=== PATIENT | male | born 1960 | race American Indian/Alaskan Native ===

== ENCOUNTER 2016-10-15 11:38 | Inpatient (IN) | payer MEDICAID, OTHER ==
--- NOTE | 2016-10-15 12:26 | XRay Report ---
CHEST 2 VIEWS INDICATION: Shortness of breath. COMPARISON: 03/09/2015 FINDINGS: PA and lateral chest radiographs again suggest mild left lower lung pneumonia. Right hemidiaphragm slightly elevated. No significant pleural effusions. Normal cardiomediastinal silhouette. New left sided central catheter with port situated along the left arm soft tissues medially. Intact bones. CONCLUSION: Left lower lung pneumonia again suspected with interval left sided central catheter placement, as described. Thank you for the opportunity to participate in this patient's care.
[2016-10-15 12:33] LABS: Basophils % (Auto) 0.5 % (0.0-1.8); Eosinophils % (Auto) 0.8 % (0.0-4.3); Hematocrit 34.3 % (35.5-45.6); Hemoglobin 11.1 gm/dl (11.8-15.2); Mean Corpuscular HGB Conc 32 % (32-34); Mean Corpuscular Hemoglobin 29 pg (28-32); Mean Corpuscular Volume 89 fl (84-94); Platelet Count 325 K/mm3 (140-440); Red Blood Count 3.87 M/mm3 (3.65-5.03); Red Cell Distribution Width 17.4 % (13.2-15.2); White Blood Count 11.1 K/mm3 (4.5-11.0)
[2016-10-15 12:45] LABS: Alanine Aminotransferase 11 units/L (7-56); Albumin 3.5 g/dL (3.9-5); Albumin/Globulin Ratio 0.8 %; Alkaline Phosphatase 115 units/L (35-129); Anion Gap 22 mmol/L; BUN/Creatinine Ratio 17.14; Blood Urea Nitrogen 12 mg/dL (9-20); Calcium 8.9 mg/dL (8.4-10.2); Carbon Dioxide 21 mmol/L (22-30); Chloride 99.4 mmol/L (98-107); Glucose 148 mg/dL (75-100); Potassium 4.3 mmol/L (3.6-5.0); Sodium 138 mmol/L (137-145); Total Protein 8.1 g/dL (6.3-8.2)
[2016-10-15 13:13] LABS: INR 1.04 (0.87-1.13)
--- NOTE | 2016-10-15 15:27 | Emergency Department Report ---
ED Shortness of Breath HPI - General Chief Complaint: Dyspnea/Respdistress Stated Complaint: SOB Time Seen by Provider: 10/15/16 15:19 Source: patient Mode of arrival: Ambulatory Limitations: No Limitations - History of Present Illness Initial Comments: Patient states that he recently returned from [facility]. He complains of yellow- green productive sputum. He denies chest pain or pressure tightness or pain or any hemoptysis. He states he is compliant with his HIV medicines but does not know his specific CD4 count. He complains of shortness of breath. He denies headache neck pain and stiffness. He thinks he may have had a fever but he did not check his temperature. MD Complaint: shortness of breath, cough -: days(s) Consistency: constant Improves With: nothing Worsens With: nothing Known History Of: HIV - Related Data Home Medications Medication Instructions Recorded Confirmed Last Taken Darunavir [Prezista] 800 mg PO QDAY 03/03/15 03/03/15 02/27/15 Elvitegr/Cobicist/Emtric/Tenof 1 each PO DAILY 03/03/15 03/03/15 02/27/15 [Stribild Tablet] Allergies Allergy/AdvReac Type Severity Reaction Status Date / Time No Known Allergies Allergy Verified 03/01/15 10:38 ED Review of Systems ROS: Stated complaint: SOB Other details as noted in HPI Constitutional: denies: chills, fever Eyes: denies: eye pain, eye discharge, vision change ENT: denies: ear pain, throat pain Respiratory: cough, shortness of breath. denies: wheezing Cardiovascular: denies: chest pain, palpitations Endocrine: no symptoms reported Gastrointestinal: denies: abdominal pain, nausea, diarrhea Genitourinary: denies: urgency, dysuria Musculoskeletal: denies: back pain, joint swelling, arthralgia Skin: denies: rash, lesions Neurological: denies: headache, weakness, paresthesias Psychiatric: denies: anxiety, depression Hematological/Lymphatic: denies: easy bleeding, easy bruising ED Past Medical Hx - Past Medical History Hx Hypertension: Yes Hx CVA: No Hx Congestive Heart Failure: No Hx Diabetes: No Hx Asthma: No Hx COPD: No Hx HIV: Yes Additional medical history: rectal mass - Surgical History Additional Surgical History: penile surgery,left inguinal hernia - Social History Smoking Status: Never Smoker Substance Use Type: None - Medications Home Medications: Home Medications Medication Instructions Recorded Confirmed Last Taken Type Darunavir [Prezista] 800 mg PO QDAY 03/03/15 03/03/15 02/27/15 History Elvitegr/Cobicist/Emtric/Tenof 1 each PO DAILY 03/03/15 03/03/15 02/27/15 History [Stribild Tablet] ED Physical Exam - General Limitations: No Limitations General appearance: other (somewhat ill-appearing) - Head Head exam: Present: atraumatic, normocephalic - Eye Eye exam: Present: normal appearance. Absent: scleral icterus - ENT ENT exam: Present: normal exam, mucous membranes moist - Neck Neck exam: Present: normal inspection - Respiratory Respiratory exam: Present: rhonchi (scattered rhonchi). Absent: respiratory distress, accessory muscle use, decreased breath sounds, prolonged expiratory - Cardiovascular Cardiovascular Exam: Present: normal rhythm, tachycardia. Absent: systolic murmur, diastolic murmur, rubs, gallop - GI/Abdominal GI/Abdominal exam: Present: soft, normal bowel sounds. Absent: distended, tenderness, guarding, rebound, rigid - Rectal Rectal exam: Present: deferred - Extremities Exam Extremities exam: Present: normal inspection, normal capillary refill. Absent: full ROM, tenderness, pedal edema, joint swelling, calf tenderness - Back Exam Back exam: Present: normal inspection - Neurological Exam Neurological exam: Present: alert, oriented X3, CN II-XII intact. Absent: motor sensory deficit - Psychiatric Psychiatric exam: Present: normal affect, normal mood - Skin Skin exam: Present: warm, dry, intact, normal color. Absent: rash ED Course Vital Signs 10/15/16 11:43 Temperature 98.3 F Pulse Rate 112 H Respiratory 22 Rate Blood Pressure 135/94 O2 Sat by Pulse 93 Oximetry - Reevaluation(s) Reevaluation #1: Patient was begun on IV Levaquin and by mouth Bactrim. He states he thinks his CD4 count is normal but he does know at that number is. He is admitted by Dr. Flores who may expand his antibiotic coverage. He was admitted in stable condition. Placed on 2 L O2 and his saturation was in the high 90s. Further care and additional antibiotic management by Dr. Flores. 10/15/16 18:27 10/15/16 18:31 ED Medical Decision Making - Lab Data Result diagrams: 10/15/16 12:02 10/15/16 12:16 Laboratory Results - last 24 hr 10/15/16 10/15/16 10/15/16 12:02 12:02 12:16 WBC 11.1 H RBC 3.87 Hgb 11.1 L Hct 34.3 L MCV 89 MCH 29 MCHC 32 RDW 17.4 H Plt Count 325 Lymph % (Auto) 20.3 [place] % (Auto) 5.4 Eos % (Auto) 0.8 Baso % (Auto) 0.5 Lymph # 2.3 [place] # 0.6 Eos # 0.1 Baso # 0.1 Seg Neutrophils % 73.0 H Seg Neutrophils # 8.1 H PT INR VBG pH Sodium 138 Potassium 4.3 Chloride 99.4 Carbon Dioxide 21 L Anion Gap 22 BUN 12 Creatinine 0.7 L Estimated GFR > 60 BUN/Creatinine Ratio 17.14 Glucose 148 H Lactic Acid Calcium 8.9 Total Bilirubin 0.30 AST 18 ALT 11 Alkaline Phosphatase 115 Troponin T 0.020 Total Protein 8.1 Albumin 3.5 L Albumin/Globulin Ratio 0.8 10/15/16 10/15/16 10/15/16 12:28 12:28 12:28 WBC RBC Hgb Hct MCV MCH MCHC RDW Plt Count Lymph % (Auto) [place] % (Auto) Eos % (Auto) Baso % (Auto) Lymph # [place] # Eos # Baso # Seg Neutrophils % Seg Neutrophils # PT 13.5 INR 1.04 VBG pH 7.324 Sodium Potassium Chloride Carbon Dioxide Anion Gap BUN Creatinine Estimated GFR BUN/Creatinine Ratio Glucose Lactic Acid 2.70 H* Calcium Total Bilirubin AST ALT Alkaline Phosphatase Troponin T Total Protein Albumin Albumin/Globulin Ratio - EKG Data -: EKG Interpreted by Me EKG shows normal: sinus rhythm, axis, intervals, QRS complexes, ST-T waves Rate: tachycardia - EKG Data Interpretation: no acute changes - Radiology Data Bilateral lower lobe infiltrates. Critical care attestation.: If time is entered above; I have spent that time in minutes in the direct care of this critically ill patient, excluding procedure time. ED Disposition Clinical Impression: Hypoxia, HIV positive Bilateral pneumonia Qualifiers: Pneumonia type: due to unspecified organism Lung location: lower lobe of lung Qualified Code(s): J18.9 - Pneumonia, unspecified organism Disposition: DC-09 OP ADMIT IP TO THIS HOSP Is pt being admited?: Yes Does the pt Need Aspirin: Yes Condition: Stable Instructions: Bacterial Pneumonia (ED) Referrals: PRIMARY CARE, [Primary Care Provider] - 3-5 Days Time of Disposition: 18:36
--- NOTE | 2016-10-15 15:48 | History and Physical Report ---
History of Present Illness Chief complaint: Im coughing up green stuff History of present illness: 56 YO Male with HTN, HIV presents to ED for evaluation. Pt states that he has experienced productive cough of green sputum over the past week, with worsening shortness of breath over the past 3 days. Pt denies fever, chills, CP, Palpitations, NVD, neck pain, unintentional weight loss, night sweats, BRBPR, or known recent ill contacts. Pt states that he is compliant with his HIV medication, but does not know his CD4 count. Past History Past Medical History: HIV/AIDS, hyperthyroidism Past Surgical History: Other (penile surgery) Social history: , lives with family. denies: smoking, alcohol abuse, prescription drug abuse Family history: hypertension Medications and Allergies Allergies Allergy/AdvReac Type Severity Reaction Status Date / Time No Known Allergies Allergy Verified 03/01/15 10:38 Home Medications Medication Instructions Recorded Confirmed Last Taken Type Darunavir [Prezista] 800 mg PO QDAY 03/03/15 10/15/16 02/27/15 History Elvitegr/Cobicist/Emtric/Tenof 1 each PO DAILY 03/03/15 10/15/16 02/27/15 History [Stribild Tablet] Review of Systems Constitutional: no weight loss, no weight gain, no fever Ears, nose, mouth and throat: no ear pain, no ear discharge, no tinnitis, no decreased hearing, no nose pain Cardiovascular: no chest pain, no orthopnea, no rapid/irregular heart beat, no edema, no syncope Respiratory: cough with sputum, excessive sputum, shortness of breath Gastrointestinal: no abdominal pain, no nausea, no vomiting, no diarrhea Genitourinary Male: no dysuria, no hematuria, no flank pain, no discharge Rectal: no pain, no incontinence, no bleeding Musculoskeletal: no neck stiffness, no neck pain, no shooting arm pain, no arm numbness/tingling, no low back pain Integumentary: no rash, no pruritis, no redness, no sores, no wounds Neurological: no transient paralysis, no paralysis, no weakness, no parathesias , no tingling, no seizures Psychiatric: no anxiety, no memory loss, no change in sleep habits, no sleep disturbances, no insomnia, no hypersomnia Endocrine: no cold intolerance, no heat intolerance, no polyphagia, no excessive thirst, no polydipsia Hematologic/Lymphatic: no easy bruising, no easy bleeding Allergic/Immunologic: no urticaria, no allergic rhinitis, no wheezing Exam - Constitutional Vitals: Temp Pulse Resp BP Pulse Ox 98.3 F 112 H 22 135/94 93 10/15/16 11:43 10/15/16 11:43 10/15/16 11:43 10/15/16 11:43 10/15/16 11:43 General appearance: Present: mild distress - EENT Eyes: Present: PERRL ENT: hearing intact, clear oral mucosa - Neck Neck: Present: supple, normal ROM - Respiratory Respiratory effort: labored Respiratory: bilateral: diminished - Cardiovascular Heart Sounds: Present: S1 & S2. Absent: rub, click - Extremities Extremities: pulses symmetrical, No edema Peripheral Pulses: within normal limits - Abdominal General gastrointestinal: Present: soft, non-tender, non-distended, normal bowel sounds Male genitourinary: Present: normal - Integumentary Integumentary: Present: clear, dry, clammy, decreased turgor - Musculoskeletal Musculoskeletal: gait normal, strength equal bilaterally - Psychiatric Psychiatric: appropriate mood/affect, intact judgment & insight - Neurologic Neurologic: CNII-XII intact, moves all extremities Results - Labs CBC & Chem 7: 10/15/16 12:02 10/15/16 12:16 Labs: Abnormal lab results 10/15/16 10/15/16 10/15/16 Range/Units 12:02 12:16 12:28 WBC 11.1 H (4.5-11.0) K/mm3 Hgb 11.1 L (11.8-15.2) gm/dl Hct 34.3 L (35.5-45.6) % RDW 17.4 H (13.2-15.2) % Seg Neutrophils % 73.0 H (40.0-70.0) % Seg Neutrophils # 8.1 H (1.8-7.7) K/mm3 Carbon Dioxide 21 L (22-30) mmol/L Creatinine 0.7 L (0.8-1.5) mg/dL Glucose 148 H (75-100) mg/dL Lactic Acid 2.70 H* (0.7-2.0) mmol/L Albumin 3.5 L (3.9-5) g/dL Assessment and Plan - Patient Problems (1) Sepsis Current Visit: Yes Status: Acute Qualifiers: Sepsis type: S Plan to address problem: IV abx, blood cultures, supportive care, serial lactate, IVF resuscitation, monitor uop q shift, (2) Bilateral pneumonia Current Visit: Yes Status: Acute Qualifiers: Pneumonia type: due to unspecified organism Aspiration pneumonia type: A Lung location: lower lobe of lung Qualified Code(s): J18.9 - Pneumonia, unspecified organism Plan to address problem: IV abx, blood cultures, supportive care, nebs, aspiration precautions, supportive care. (3) HIV positive Current Visit: Yes Status: Acute Plan to address problem: Resume home medication, outpatient ID f/u (4) Acute hypoxemic respiratory failure Current Visit: No Status: Acute Plan to address problem: supplemental oxygen, nebs, aspiration precautions, NIPPV as clinically indicated , (5) HTN (hypertension) Current Visit: Yes Status: Acute Qualifiers: Hypertension type: H Plan to address problem: moitor bp q shift, continue medical management (6) Lactic acidosis Current Visit: Yes Status: Acute Plan to address problem: treat sepsis, repeat lactic acid level, IVF resuscitation (7) DVT prophylaxis Current Visit: Yes Status: Acute
[2016-10-15] MEDS ORDERED: TYLENOL PO PRN (15:51)
[2016-10-15] MEDS ORDERED: ZOFRAN IV PRN (15:51)
[2016-10-15] MEDS ORDERED: PROVENTIL IH PRN (15:51)
[2016-10-15] MEDS ORDERED: NORCO 5/325 PO PRN (15:57)
[2016-10-15] MEDS ORDERED: PERCOCET 5/325 PO PRN (15:57)
[2016-10-15] MEDS ORDERED: NACL 0.9% 1000 ML IV ONE (16:14)
[2016-10-15 16:36] LABS: Bilirubin,Urine NEG (Negative); Blood,Urine NEG (Negative); Ketones,Urine NEG (Negative); Leukocyte Esterase,Urine NEG (Negative); Mucus,Urine FEW /HPF; Nitrite,Urine NEG (Negative); RBC,Urine < 1.0 /HPF (0.0-6.0); Urobilinogen,Urine < 2.0 mg/dL (<2.0)
[2016-10-15] MEDS ORDERED: NACL 0.9% 1000 ML 1,000 ML IV ONE (16:53)
[2016-10-15] MEDS: LEVAQUIN 750MG/150ML 750 MG/150 ML BAG IV ONE ×2 (17:05→17:07)
[2016-10-15] MEDS: ROCEPHIN/NS 2 GM/100 ML 2 GM/100 ML BAG IV SCH (17:30)
[2016-10-15] MEDS: ZITHROMAX 500 MG in NACL 0.9% 250ML 250 ML IV SCH (17:34)
--- NOTE | 2016-10-15 18:06 | Admit Criteria Form ---
Admission Criteria Documentation: SEPSIS and OTHER FEBRILE ILLNESS, W/O FOCAL INFECTION Clinical Indications for Admission to Inpatient Care ( Place 'X' for any and all applicable criteria): Admission to inpatient status for two midnights or more is indicated for ANY ONE of the following (1)(2)(3): [X] I. Bacteremia [X]II. Suspected or identified specific infection requiring hospitalization (eg, meningitis, endocarditis) [ ]III. Hemodynamic instability [ ]IV. Temperature > 104.9 0F (40.5 0C) (oral) [ ]V. Core (rectal) temperature < 95 0F (35 0C) (eg, thought to be due to infection) [ ]. Altered mental status that is severe or persistent [ ]VII. Failure or unavailability of outpatient antimicrobial treatment [ ]VIII. Hypoxemia [ ]IX. Seizures [ ]X. New coagulopathy (eg, reduced platelet count consistent with disseminated intravascular coagulation) [ ]XI. Inpatient admission required [B] rather than observation care because of 1 or more of the following 1) Tachypnea not responsive to outpatient or observation treatment 2) Metabolic disorder (eg, hypoglycemia, hyperglycemia, metabolic acidosis ) that persists despite outpatient and observation care treatment 3) Evidence of end-organ dysfunction (eg, rising creatinine, myocardial ischemia, rising liver function tests) that is severe or persists despite observation care treatment 4) Temperature > 103.1 0F (39.5 0C) (oral) that is not responsive to observation care treatment 5) Dehydration that is severe or persistent 6) Parenteral antimicrobial regimen that must be implemented on inpatient basis (eg, infusion or monitoring needs beyond capabilities of outpatient parenteral therapy) 7) Strict or protective (eg, laminar flow) isolation 8) Other condition, treatment or monitoring requiring inpatient admission Extended stay beyond goal length of stay may be needed for(1)(3) [ ]a) Persistent Hypotension [ ]b) Positive blood cultures [ ]c) Lack of improvement on antimicrobial treatment (eg, continued fever) [ ]d) Active comorbid illness (eg, heart failure, renal failure) [ ]e) High-risk febrile neutropenia [ ]f) Insufficient oral intake [ ]g) insufficient oral intake The original [employer] content created by [employer] has been revised. The portions of the content which have been revised are identified through the use of italic text or in bold, and [employer] has neither reviewed nor approved the modified material. All other unmodified content is copyright [facility]. Please see references footnoted in the original [facility] edition 2017 Admission Criteria Met: Yes
[2016-10-15] MEDS: BABY ASPIRIN PO SCH (21:32)
[2016-10-15] MEDS: BACTRIM DS PO SCH (21:32)
[2016-10-15] MEDS: NYSTATIN PO SCH (21:32)
[2016-10-15] MEDS: NACL 0.45% 1000 ML 1,000 ML IV SCH (21:54)
[2016-10-15] MEDS ORDERED: BACTRIM DS PO SCH (22:00)
[2016-10-16] MEDS ORDERED: PREZISTA PO SCH (10:00)
[2016-10-16] MEDS ORDERED: [UNRECOGNIZED DRUG - OTHER] PO SCH (10:00)
[2016-10-16] MEDS: BABY ASPIRIN PO SCH (10:01)
[2016-10-16] MEDS: PEPCID PO SCH (10:02)
[2016-10-16] MEDS: BACTRIM DS PO SCH ×2 (10:02→23:47)
[2016-10-16] MEDS: HCTZ PO SCH (10:02)
[2016-10-16] MEDS: NYSTATIN PO SCH ×3 (10:02→20:53)
[2016-10-16] MEDS: EMTRIVA PO SCH (10:03)
[2016-10-16] MEDS: SUSTIVA PO SCH (10:03)
[2016-10-16] MEDS: VIREAD PO SCH (10:03)
--- NOTE | 2016-10-16 11:13 | Progress Note ---
Assessment and Plan Assessment and plan: 56-year-old male with past medical history of HIV /AIDS on retroviral medications and presents with 5 days of cough productive of green sputum fevers and malaise. Sepsis due to PNA likely Gram positive PNA continue abx, ID consult HIV/AIDS continue retrovirals check cd4 count and viral load, ID consult Acute hypoxemic respiratory failure improved, continue to wean off oxygen HTN (hypertension) Lactic acidosis due to sepsis, rx as above dvt ppx lovenox History Interval history: continues to have fever, and productive cough, with thick green sputum Hospitalist Physical - Physical exam Narrative exam: Gen.: toxic appearance HEENT: Moist mucous membranes, extraocular muscles intact, no lymphadenopathy Neck: supple Cardiac: S1-S2 heard Lungs: Left crackles Abdomen: soft , nontender, nondistended, bowel sounds positive Extremities: no edema clubbing or cyanosis Skin: no rash or lesions Neurologic: no gross focal deficits Psych: appropriate behavior, appropriate mood, corporative, judgment intact - Constitutional Vitals: Temp Pulse Resp BP Pulse Ox 98.9 F 68 22 128/80 96 10/16/16 08:00 10/16/16 08:00 10/16/16 08:00 10/16/16 08:00 10/16/16 08:20 General appearance: Present: mild distress Results - Labs CBC & Chem 7: 10/15/16 12:02 10/15/16 12:16 Labs: Laboratory Last Values WBC 11.1 K/mm3 (4.5-11.0) H 10/15/16 12:02 RBC 3.87 M/mm3 (3.65-5.03) 10/15/16 12:02 Hgb 11.1 gm/dl (11.8-15.2) L 10/15/16 12:02 Hct 34.3 % (35.5-45.6) L 10/15/16 12:02 MCV 89 fl (84-94) 10/15/16 12:02 MCH 29 pg (28-32) 10/15/16 12:02 MCHC 32 % (32-34) 10/15/16 12:02 RDW 17.4 % (13.2-15.2) H 10/15/16 12:02 Plt Count 325 K/mm3 (140-440) 10/15/16 12:02 Lymph % (Auto) 20.3 % (13.4-35.0) 10/15/16 12:02 [place] % (Auto) 5.4 % (0.0-7.3) 10/15/16 12:02 Eos % (Auto) 0.8 % (0.0-4.3) 10/15/16 12:02 Baso % (Auto) 0.5 % (0.0-1.8) 10/15/16 12:02 Lymph # 2.3 K/mm3 (1.2-5.4) 10/15/16 12:02 [place] # 0.6 K/mm3 (0.0-0.8) 10/15/16 12:02 Eos # 0.1 K/mm3 (0.0-0.4) 10/15/16 12:02 Baso # 0.1 K/mm3 (0.0-0.1) 10/15/16 12:02 Seg Neutrophils % 73.0 % (40.0-70.0) H 10/15/16 12:02 Seg Neutrophils # 8.1 K/mm3 (1.8-7.7) H 10/15/16 12:02 PT 13.5 Sec. (12.2-14.9) 10/15/16 12:28 INR 1.04 (0.87-1.13) 10/15/16 12:28 VBG pH 7.324 (7.320-7.420) 10/15/16 12:28 Sodium 138 mmol/L (137-145) 10/15/16 12:16 Potassium 4.3 mmol/L (3.6-5.0) 10/15/16 12:16 Chloride 99.4 mmol/L (98-107) 10/15/16 12:16 Carbon Dioxide 21 mmol/L (22-30) L 10/15/16 12:16 Anion Gap 22 mmol/L 10/15/16 12:16 BUN 12 mg/dL (9-20) 10/15/16 12:16 Creatinine 0.7 mg/dL (0.8-1.5) L 10/15/16 12:16 Estimated GFR > 60 ml/min 10/15/16 12:16 BUN/Creatinine Ratio 17.14 % 10/15/16 12:16 Glucose 148 mg/dL (75-100) H 10/15/16 12:16 Lactic Acid 0.80 mmol/L (0.7-2.0) 10/15/16 20:22 Calcium 8.9 mg/dL (8.4-10.2) 10/15/16 12:16 Total Bilirubin 0.30 mg/dL (0.1-1.2) 10/15/16 12:16 AST 18 units/L (5-40) 10/15/16 12:16 ALT 11 units/L (7-56) 10/15/16 12:16 Alkaline Phosphatase 115 units/L (35-129) 10/15/16 12:16 Troponin T 0.020 ng/mL (0.00-0.029) 10/15/16 12:02 Total Protein 8.1 g/dL (6.3-8.2) 10/15/16 12:16 Albumin 3.5 g/dL (3.9-5) L 10/15/16 12:16 Albumin/Globulin Ratio 0.8 % 10/15/16 12:16 Urine Color Yellow (Yellow) 10/15/16 16:28 Urine Turbidity Clear (Clear) 10/15/16 16:28 Urine pH 6.0 (5.0-7.0) 10/15/16 16:28 Ur Specific [place] 1.019 (1.003-1.030) 10/15/16 16:28 Urine Protein 100 mg/dl mg/dL (Negative) 10/15/16 16:28 Urine Glucose (UA) Neg mg/dL (Negative) 10/15/16 16:28 Urine Ketones Neg mg/dL (Negative) 10/15/16 16:28 Urine Blood Neg (Negative) 10/15/16 16:28 Urine Nitrite Neg (Negative) 10/15/16 16:28 Urine Bilirubin Neg (Negative) 10/15/16 16:28 Urine Urobilinogen < 2.0 mg/dL (<2.0) 10/15/16 16:28 Ur Leukocyte Esterase Neg (Negative) 10/15/16 16:28 Urine WBC (Auto) 1.0 /HPF (0.0-6.0) 10/15/16 16:28 Urine RBC (Auto) < 1.0 /HPF (0.0-6.0) 10/15/16 16:28 Urine Mucus Few /HPF 10/15/16 16:28 Blood Type O POSITIVE 10/15/16 16:36 Antibody Screen Negative 10/15/16 16:36
[2016-10-16] MEDS ORDERED: Fluarix Quad 2017-2018(36 MOS+) IM ONE (12:00)
[2016-10-16] MEDS ORDERED: PNEUMOVAX 23 IM ONE (12:00)
[2016-10-16] MEDS: ZITHROMAX 500 MG in NACL 0.9% 250ML 250 ML IV SCH (16:59)
[2016-10-16] MEDS: ROCEPHIN/NS 2 GM/100 ML 2 GM/100 ML BAG IV SCH (17:01)
[2016-10-16] MEDS: NACL 0.45% 1000 ML 1,000 ML IV SCH (17:13)
[2016-10-17] MEDS: BABY ASPIRIN PO SCH (09:23)
[2016-10-17] MEDS: HCTZ PO SCH (09:23)
[2016-10-17] MEDS: NYSTATIN PO SCH ×2 (09:23→21:48)
[2016-10-17] MEDS: PEPCID PO SCH (09:23)
[2016-10-17] MEDS: BACTRIM DS PO SCH (09:24)
[2016-10-17] MEDS: SUSTIVA PO SCH (09:24)
[2016-10-17] MEDS: VIREAD PO SCH (09:25)
[2016-10-17] MEDS: EMTRIVA PO SCH (09:25)
[2016-10-17] MEDS: NACL 0.45% 1000 ML 1,000 ML IV SCH ×2 (09:29→21:44)
--- NOTE | 2016-10-17 09:39 | Progress Note ---
Assessment and Plan Assessment and plan: 56-year-old male with past medical history of HIV /AIDS on retroviral medications and presents with 5 days of cough productive of green sputum fevers and malaise. Sepsis due to PNA likely Pneumocystis PNA continue abx, ID consult appreciated IV bactrim for treatment of PJP -add prednisone 40 mg BID for PJP -continue ceftriaxone and azithromycin -airbone iso, check sputum AFB HIV/AIDS continue retrovirals check cd4 count and viral load, ID consult appreciated Acute hypoxemic respiratory failure improved, continue to wean off oxygen HTN (hypertension) well controlled Lactic acidosis due to sepsis, rx as above dvt ppx lovenox History Interval history: Cough and sputum production has improved Hospitalist Physical - Physical exam Narrative exam: Gen.: non toxic appearance HEENT: Moist mucous membranes, extraocular muscles intact, no lymphadenopathy Neck: supple Cardiac: S1-S2 heard Lungs: Left crackles Abdomen: soft , nontender, nondistended, bowel sounds positive Extremities: no edema clubbing or cyanosis Skin: no rash or lesions Neurologic: no gross focal deficits Psych: appropriate behavior, appropriate mood, corporative, judgment intact - Constitutional Vitals: Temp Pulse Resp BP Pulse Ox 98.0 F 68 20 121/81 97 10/17/16 07:56 10/17/16 07:56 10/17/16 07:56 10/17/16 07:56 10/17/16 07:56 Results - Labs CBC & Chem 7: 10/15/16 12:02 10/15/16 12:16 Labs: Laboratory Last Values WBC 11.1 K/mm3 (4.5-11.0) H 10/15/16 12:02 RBC 3.87 M/mm3 (3.65-5.03) 10/15/16 12:02 Hgb 11.1 gm/dl (11.8-15.2) L 10/15/16 12:02 Hct 34.3 % (35.5-45.6) L 10/15/16 12:02 MCV 89 fl (84-94) 10/15/16 12:02 MCH 29 pg (28-32) 10/15/16 12:02 MCHC 32 % (32-34) 10/15/16 12:02 RDW 17.4 % (13.2-15.2) H 10/15/16 12:02 Plt Count 325 K/mm3 (140-440) 10/15/16 12:02 Lymph % (Auto) 20.3 % (13.4-35.0) 10/15/16 12:02 [place] % (Auto) 5.4 % (0.0-7.3) 10/15/16 12:02 Eos % (Auto) 0.8 % (0.0-4.3) 10/15/16 12:02 Baso % (Auto) 0.5 % (0.0-1.8) 10/15/16 12:02 Lymph # 2.3 K/mm3 (1.2-5.4) 10/15/16 12:02 [place] # 0.6 K/mm3 (0.0-0.8) 10/15/16 12:02 Eos # 0.1 K/mm3 (0.0-0.4) 10/15/16 12:02 Baso # 0.1 K/mm3 (0.0-0.1) 10/15/16 12:02 Seg Neutrophils % 73.0 % (40.0-70.0) H 10/15/16 12:02 Seg Neutrophils # 8.1 K/mm3 (1.8-7.7) H 10/15/16 12:02 PT 13.5 Sec. (12.2-14.9) 10/15/16 12:28 INR 1.04 (0.87-1.13) 10/15/16 12:28 VBG pH 7.324 (7.320-7.420) 10/15/16 12:28 Sodium 138 mmol/L (137-145) 10/15/16 12:16 Potassium 4.3 mmol/L (3.6-5.0) 10/15/16 12:16 Chloride 99.4 mmol/L (98-107) 10/15/16 12:16 Carbon Dioxide 21 mmol/L (22-30) L 10/15/16 12:16 Anion Gap 22 mmol/L 10/15/16 12:16 BUN 12 mg/dL (9-20) 10/15/16 12:16 Creatinine 0.7 mg/dL (0.8-1.5) L 10/15/16 12:16 Estimated GFR > 60 ml/min 10/15/16 12:16 BUN/Creatinine Ratio 17.14 % 08/30/17 12:16 Glucose 148 mg/dL (75-100) H 10/15/16 12:16 Lactic Acid 0.80 mmol/L (0.7-2.0) 10/15/16 20:22 Calcium 8.9 mg/dL (8.4-10.2) 10/15/16 12:16 Total Bilirubin 0.30 mg/dL (0.1-1.2) 10/15/16 12:16 AST 18 units/L (5-40) 10/15/16 12:16 ALT 11 units/L (7-56) 10/15/16 12:16 Alkaline Phosphatase 115 units/L (35-129) 10/15/16 12:16 Troponin T 0.020 ng/mL (0.00-0.029) 10/15/16 12:02 Total Protein 8.1 g/dL (6.3-8.2) 10/15/16 12:16 Albumin 3.5 g/dL (3.9-5) L 10/15/16 12:16 Albumin/Globulin Ratio 0.8 % 10/15/16 12:16 Urine Color Yellow (Yellow) 10/15/16 16:28 Urine Turbidity Clear (Clear) 10/15/16 16:28 Urine pH 6.0 (5.0-7.0) 10/15/16 16:28 Ur Specific [place] 1.019 (1.003-1.030) 10/15/16 16:28 Urine Protein 100 mg/dl mg/dL (Negative) 10/15/16 16:28 Urine Glucose (UA) Neg mg/dL (Negative) 10/15/16 16:28 Urine Ketones Neg mg/dL (Negative) 10/15/16 16:28 Urine Blood Neg (Negative) 10/15/16 16:28 Urine Nitrite Neg (Negative) 10/15/16 16:28 Urine Bilirubin Neg (Negative) 10/15/16 16:28 Urine Urobilinogen < 2.0 mg/dL (<2.0) 10/15/16 16:28 Ur Leukocyte Esterase Neg (Negative) 10/15/16 16:28 Urine WBC (Auto) 1.0 /HPF (0.0-6.0) 10/15/16 16:28 Urine RBC (Auto) < 1.0 /HPF (0.0-6.0) 10/15/16 16:28 Urine Mucus Few /HPF 10/15/16 16:28 Blood Type O POSITIVE 10/15/16 16:36 Antibody Screen Negative 10/15/16 16:36
--- NOTE | 2016-10-17 13:46 | Consultation ---
History of Present Illness - Reason for Consult Consult date: 10/17/16 cough Requesting physician: MARIANA MANNING - History of Present Illness 56-year-old male with history of HIV /AIDS off ART for 4 weeks admitted on due to 2 week-history of productive cough, malaise, fever, and progressive SOB. He sees [place] providers. He usually on emtriva, efavirens and tenofovir. Pt just came back from [facility]. In the ED, temp 99.2, HR 101, BP 120/62, O2 sat 93%, WBC 11K, creat 0.2, lactate 3.1, UA neg, CXR LLL pneumonia. Current Antimicrobials: ceftriaxone azitromycin Previous Antimicrobials: Microbiology: Blood cultures: 10/15 ngtd Urine cultures: 10/15 ngtd Respiratory cultures: Wound cultures: Stool cultures: Other: Past History Past Medical History: HIV/AIDS, hyperthyroidism Past Surgical History: Other (penile surgery) Social history: , lives with family. denies: smoking, alcohol abuse, prescription drug abuse Family history: hypertension Medications and Allergies Allergies Allergy/AdvReac Type Severity Reaction Status Date / Time No Known Allergies Allergy Verified 03/01/15 10:38 Home Medications Medication Instructions Recorded Confirmed Last Taken Type Darunavir [Prezista] 800 mg PO QDAY 03/03/15 10/15/16 02/27/15 History Elvitegr/Cobicist/Emtric/Tenof 1 each PO DAILY 03/03/15 10/15/16 02/27/15 History [Stribild Tablet] Active Meds: Active Medications Acetaminophen (Tylenol) 650 mg PO Q4H PRN PRN Reason: Pain MILD(1-3)/Fever >100.5/CRUZ Acetaminophen/Hydrocodone Bitart ([place] 5/325) 1 each PO Q6HR PRN PRN Reason: Pain Albuterol (Proventil) 2.5 mg IH Q4HRT PRN PRN Reason: Shortness Of Breath Aspirin (Baby Aspirin) 81 mg PO QDAY [facility] Last Admin: 10/17/16 09:23 Dose: 81 mg Azithromycin (Zithromax) 500 mg PO QDAY [facility] Efavirenz (Sustiva) 600 mg PO QDAY [facility] Last Admin: 10/17/16 09:24 Dose: 600 mg Emtricitabine (Emtriva) 200 mg PO QDAY [facility] Last Admin: 10/17/16 09:25 Dose: 200 mg Famotidine (Pepcid) 20 mg PO QDAY [facility] Last Admin: 10/17/16 09:23 Dose: 20 mg Hydrochlorothiazide (Hctz) 12.5 mg PO QDAY [facility] Last Admin: 10/17/16 09:23 Dose: 12.5 mg Sodium Chloride (Nacl 0.45% 1000 Ml) 1,000 mls @ 100 mls/hr IV DIRECT [facility] Last Admin: 10/17/16 09:29 Dose: 100 mls/hr Azithromycin 500 mg/ Sodium (Chloride) 250 mls @ 250 mls/hr IV Q24H [facility] Stop: 10/17/16 23:59 Last Admin: 10/16/16 16:59 Dose: 250 mls/hr Ceftriaxone Sodium (Rocephin/Ns 2 Gm/100 Ml) 2 gm in 100 mls @ 200 mls/hr IV Q24H [facility] PRN Reason: Protocol Last Admin: 10/16/16 17:01 Dose: 200 mls/hr Nystatin (Nystatin) 100,000 unit PO TID [facility] Last Admin: 10/17/16 09:23 Dose: 100,000 unit Ondansetron HCl (Zofran) 4 mg IV Q8H PRN PRN Reason: N/V unrelieved by Reglan Oxycodone/Acetaminophen (Percocet 5/325) 1 tab PO Q6HR PRN PRN Reason: Pain Tenofovir Disoproxil Fumarate (Viread) 300 mg PO QDAY [facility] Last Admin: 10/17/16 09:25 Dose: 300 mg Trimethoprim/Sulfamethoxazole (Bactrim Ds) 1 each PO Q12HR [facility] Last Admin: 10/17/16 09:24 Dose: 1 each Review of Systems Constitutional: weight loss, fever, fatigue, weakness Ears, nose, mouth and throat: no nasal discharge, no sinus pressure Respiratory: cough, shortness of breath Gastrointestinal: no nausea, no vomiting, no diarrhea Genitourinary Male: no hematuria, no urinary frequency Integumentary: no rash Neurological: no numbness, no syncope Psychiatric: no anxiety Physical Examination - Physical Exam Narrative exam: General appearance: Alert in NAD, conversant Eyes: anicteric sclerae, moist conjunctivae; no lid-lag; PERRLA HENT: Atraumatic; oropharynx clear Neck: Trachea midline; supple, no thyromegaly or lymphadenopathy Lungs: deepa rhonchi CV: RRR, no murmurs Abdomen: Soft, non-tender; no masses or hepatosplenomegaly Extremities: No peripheral edema or extremity lymphadenopathy Skin: Normal temperature, turgor and texture; no rash, ulcers or subcutaneous nodules Psych: Appropriate affect, alert and oriented to person, place and time. Neuro: alert and oriented x 3. Moving all extermities - Constitutional Vitals: Vital Signs Temp Pulse Resp BP Pulse Ox 98.0 F 68 20 121/81 97 10/17/16 07:56 10/17/16 07:56 10/17/16 07:56 10/17/16 07:56 10/17/16 07:56 Temperature -Last 24 Hours Temperature 98.0 F Temperature 99.0 F Temperature 98.0 F Results - Labs CBC & Chem 7: 10/15/16 12:02 10/15/16 12:16 Assessment and Plan Assessment: 1) Sepsis: Present on admission, manifested by fever, mild leukocytosis. Etiology most likely pneumonia 2) LLL pneumonia in a pt with HIV associated with hypoxemia: likely PJP, r/o other opportunistic infections, TB, fungal 3) HIV unknown CD4/VL 4) Returning travel from [facility] Plan: -start IV bactrim for treatment of PJP -add prednisone 40 mg BID for PJP -continue ceftriaxone and azithromycin -follow-up blood cultures, urine culture -obtain respiratory cultures, procalcitonin, C-reactive protein (CRP) -check influenza antigen PCR in nasopharinx -check legionella urine antigen, streptococcus pneumoniae urine antigen, mycoplasma serology, chlamydia pneumophila serology -check aspergillus serum antigen, cryptococcal serum antigen, histoplasma urine antigen -obtain CD4, HIV-viral load -monitor hypoxemia- it may worsen after IV bactrim if so start IV solumedrol -respiratory isolation -check quantiferon I will be off on the weekend but available over the phone Thank you Dr Manning for your consultation, will follow up with you. Rashmi Pardo MD Infectious Diseases Specialist [facility] M [phone] O [phone]
[2016-10-17] MEDS: ROCEPHIN/NS 2 GM/100 ML 2 GM/100 ML BAG IV SCH (17:34)
[2016-10-17] MEDS: DELTASONE PO SCH (21:44)
[2016-10-18] MEDS: HCTZ PO SCH (09:38)
[2016-10-18] MEDS: DELTASONE PO SCH ×2 (09:38→21:43)
[2016-10-18] MEDS: BABY ASPIRIN PO SCH (09:38)
[2016-10-18] MEDS: ZITHROMAX PO SCH (09:38)
[2016-10-18] MEDS: NYSTATIN PO SCH ×4 (09:39→20:26)
[2016-10-18] MEDS: PEPCID PO SCH (09:39)
[2016-10-18] MEDS: D5W IV SCH ×4 (09:40→19:15)
[2016-10-18] MEDS: BACTRIM IV SCH ×4 (09:40→19:15)
[2016-10-18] MEDS: ZITHROMAX 500 MG in NACL 0.9% 250ML 250 ML IV SCH (09:40)
--- NOTE | 2016-10-18 09:57 | Progress Note ---
Assessment and Plan Assessment and plan: 56-year-old male with past medical history of HIV /AIDS on retroviral medications and presents with 5 days of cough productive of green sputum fevers and malaise. Sepsis due to PNA likely Pneumocystis PNA continue abx, ID consult appreciated IV bactrim for treatment of PJP -Continue prednisone 40 mg BID for PJP -continue ceftriaxone and azithromycin -airbone iso, check sputum AFB -crypt ag negative -Check Legionella antigen HIV/AIDS continue retrovirals check cd4 count and viral load, ID consult appreciated Acute hypoxemic respiratory failure improved, continue to wean off oxygen HTN (hypertension) well controlled Lactic acidosis due to sepsis, rx as above dvt ppx lovenox History Interval history: Cough and sputum production has improved Hospitalist Physical - Physical exam Narrative exam: Gen.: non toxic appearance HEENT: Moist mucous membranes, extraocular muscles intact, no lymphadenopathy Neck: supple Cardiac: S1-S2 heard Lungs: Left crackles Abdomen: soft , nontender, nondistended, bowel sounds positive Extremities: no edema clubbing or cyanosis Skin: no rash or lesions Neurologic: no gross focal deficits Psych: appropriate behavior, appropriate mood, corporative, judgment intact - Constitutional Vitals: Temp Pulse Resp BP Pulse Ox 97.8 F 73 20 114/80 98 10/17/16 22:37 10/17/16 15:25 10/17/16 22:37 10/17/16 22:37 10/17/16 22:00 General appearance: Present: no acute distress Results - Labs CBC & Chem 7: 10/15/16 12:02 10/15/16 12:16 Labs: Laboratory Last Values WBC 11.1 K/mm3 (4.5-11.0) H 10/15/16 12:02 RBC 3.87 M/mm3 (3.65-5.03) 10/15/16 12:02 Hgb 11.1 gm/dl (11.8-15.2) L 10/15/16 12:02 Hct 34.3 % (35.5-45.6) L 10/15/16 12:02 MCV 89 fl (84-94) 10/15/16 12:02 MCH 29 pg (28-32) 10/15/16 12:02 MCHC 32 % (32-34) 10/15/16 12:02 RDW 17.4 % (13.2-15.2) H 10/15/16 12:02 Plt Count 325 K/mm3 (140-440) 10/15/16 12:02 Lymph % (Auto) 20.3 % (13.4-35.0) 10/15/16 12:02 [place] % (Auto) 5.4 % (0.0-7.3) 10/15/16 12:02 Eos % (Auto) 0.8 % (0.0-4.3) 10/15/16 12:02 Baso % (Auto) 0.5 % (0.0-1.8) 10/15/16 12:02 Lymph # 2.3 K/mm3 (1.2-5.4) 10/15/16 12:02 [place] # 0.6 K/mm3 (0.0-0.8) 10/15/16 12:02 Eos # 0.1 K/mm3 (0.0-0.4) 10/15/16 12:02 Baso # 0.1 K/mm3 (0.0-0.1) 10/15/16 12:02 Seg Neutrophils % 73.0 % (40.0-70.0) H 10/15/16 12:02 Seg Neutrophils # 8.1 K/mm3 (1.8-7.7) H 10/15/16 12:02 PT 13.5 Sec. (12.2-14.9) 10/15/16 12:28 INR 1.04 (0.87-1.13) 10/15/16 12:28 VBG pH 7.324 (7.320-7.420) 10/15/16 12:28 Sodium 138 mmol/L (137-145) 10/15/16 12:16 Potassium 4.3 mmol/L (3.6-5.0) 10/15/16 12:16 Chloride 99.4 mmol/L (98-107) 10/15/16 12:16 Carbon Dioxide 21 mmol/L (22-30) L 10/15/16 12:16 Anion Gap 22 mmol/L 10/15/16 12:16 BUN 12 mg/dL (9-20) 10/15/16 12:16 Creatinine 0.7 mg/dL (0.8-1.5) L 10/15/16 12:16 Estimated GFR > 60 ml/min 10/15/16 12:16 BUN/Creatinine Ratio 17.14 % 10/15/16 12:16 Glucose 148 mg/dL (75-100) H 10/15/16 12:16 Lactic Acid 0.80 mmol/L (0.7-2.0) 10/15/16 20:22 Calcium 8.9 mg/dL (8.4-10.2) 10/15/16 12:16 Total Bilirubin 0.30 mg/dL (0.1-1.2) 10/15/16 12:16 AST 18 units/L (5-40) 10/15/16 12:16 ALT 11 units/L (7-56) 10/15/16 12:16 Alkaline Phosphatase 115 units/L (35-129) 10/15/16 12:16 Troponin T 0.020 ng/mL (0.00-0.029) 10/15/16 12:02 C-Reactive Protein 7.10 mg/dL (0.00-1.30) H 10/17/16 15:00 Total Protein 8.1 g/dL (6.3-8.2) 10/15/16 12:16 Albumin 3.5 g/dL (3.9-5) L 10/15/16 12:16 Albumin/Globulin Ratio 0.8 % 10/15/16 12:16 Urine Color Yellow (Yellow) 10/15/16 16:28 Urine Turbidity Clear (Clear) 10/15/16 16:28 Urine pH 6.0 (5.0-7.0) 10/15/16 16:28 Ur Specific [place] 1.019 (1.003-1.030) 10/15/16 16:28 Urine Protein 100 mg/dl mg/dL (Negative) 10/15/16 16:28 Urine Glucose (UA) Neg mg/dL (Negative) 10/15/16 16:28 Urine Ketones Neg mg/dL (Negative) 10/15/16 16:28 Urine Blood Neg (Negative) 10/15/16 16:28 Urine Nitrite Neg (Negative) 10/15/16 16:28 Urine Bilirubin Neg (Negative) 10/15/16 16:28 Urine Urobilinogen < 2.0 mg/dL (<2.0) 10/15/16 16:28 Ur Leukocyte Esterase Neg (Negative) 10/15/16 16:28 Urine WBC (Auto) 1.0 /HPF (0.0-6.0) 10/15/16 16:28 Urine RBC (Auto) < 1.0 /HPF (0.0-6.0) 10/15/16 16:28 Urine Mucus Few /HPF 10/15/16 16:28 Blood Type O POSITIVE 10/15/16 16:36 Antibody Screen Negative 10/15/16 16:36
[2016-10-18] MEDS: NACL 0.45% 1000 ML 1,000 ML IV SCH ×2 (12:41→21:42)
[2016-10-18] MEDS: VIREAD PO SCH (17:53)
[2016-10-18] MEDS: SUSTIVA PO SCH (17:53)
[2016-10-18] MEDS: ROCEPHIN/NS 2 GM/100 ML 2 GM/100 ML BAG IV SCH (17:54)
[2016-10-18] MEDS: EMTRIVA PO SCH (17:54)
[2016-10-18] MEDS: LOVENOX SUB-Q SCH (21:43)
[2016-10-19] MEDS: BACTRIM IV SCH ×4 (01:25→19:14)
[2016-10-19] MEDS: D5W IV SCH ×4 (01:25→19:14)
[2016-10-19 09:44] LABS: HIV-1 RNA QN PCR 4.75 Log cps/mL (<1.30)
[2016-10-19] MEDS: DELTASONE PO SCH ×2 (10:05→21:10)
[2016-10-19] MEDS: EMTRIVA PO SCH (10:05)
[2016-10-19] MEDS: BABY ASPIRIN PO SCH (10:05)
[2016-10-19] MEDS: ZITHROMAX PO SCH (10:05)
[2016-10-19] MEDS: SUSTIVA PO SCH (10:05)
[2016-10-19] MEDS: HCTZ PO SCH (10:06)
[2016-10-19] MEDS: NYSTATIN PO SCH ×3 (10:06→20:22)
[2016-10-19] MEDS: PEPCID PO SCH (10:06)
[2016-10-19] MEDS: VIREAD PO SCH (10:06)
--- NOTE | 2016-10-19 11:48 | Progress Note ---
Assessment and Plan Assessment and plan: 56-year-old male with past medical history of HIV /AIDS on retroviral medications and presents with 5 days of cough productive of green sputum fevers and malaise. Sepsis due to PNA likely Pneumocystis PNA continue abx, ID consult appreciated IV bactrim for treatment of PJP -Continue prednisone 40 mg BID for PJP -continue ceftriaxone and azithromycin -airbone iso, check sputum AFB -crypt ag negative -Check Legionella antigen HIV/AIDS continue retrovirals check cd4 count Viral load 55,594 ID consult appreciated Acute hypoxemic respiratory failure improved, continue to wean off oxygen HTN (hypertension) well controlled Lactic acidosis due to sepsis, rx as above dvt ppx lovenox History Interval history: Cough and sputum production has improved Hospitalist Physical - Physical exam Narrative exam: Gen.: non toxic appearance HEENT: Moist mucous membranes, extraocular muscles intact, no lymphadenopathy Neck: supple Cardiac: S1-S2 heard Lungs: Left crackles Abdomen: soft , nontender, nondistended, bowel sounds positive Extremities: no edema clubbing or cyanosis Skin: no rash or lesions Neurologic: no gross focal deficits Psych: appropriate behavior, appropriate mood, corporative, judgment intact - Constitutional Vitals: Temp Pulse Resp BP Pulse Ox 98.4 F 77 16 132/85 98 10/19/16 07:39 10/19/16 07:39 10/19/16 07:39 10/19/16 07:39 10/19/16 07:39 General appearance: Present: no acute distress Results - Labs CBC & Chem 7: 10/15/16 12:02 10/15/16 12:16 Labs: Laboratory Last Values WBC 11.1 K/mm3 (4.5-11.0) H 10/15/16 12:02 RBC 3.87 M/mm3 (3.65-5.03) 10/15/16 12:02 Hgb 11.1 gm/dl (11.8-15.2) L 10/15/16 12:02 Hct 34.3 % (35.5-45.6) L 10/15/16 12:02 MCV 89 fl (84-94) 10/15/16 12:02 MCH 29 pg (28-32) 10/15/16 12:02 MCHC 32 % (32-34) 10/15/16 12:02 RDW 17.4 % (13.2-15.2) H 10/15/16 12:02 Plt Count 325 K/mm3 (140-440) 10/15/16 12:02 Lymph % (Auto) 20.3 % (13.4-35.0) 10/15/16 12:02 [place] % (Auto) 5.4 % (0.0-7.3) 10/15/16 12:02 Eos % (Auto) 0.8 % (0.0-4.3) 10/15/16 12:02 Baso % (Auto) 0.5 % (0.0-1.8) 10/15/16 12:02 Lymph # 2.3 K/mm3 (1.2-5.4) 10/15/16 12:02 [place] # 0.6 K/mm3 (0.0-0.8) 10/15/16 12:02 Eos # 0.1 K/mm3 (0.0-0.4) 10/15/16 12:02 Baso # 0.1 K/mm3 (0.0-0.1) 10/15/16 12:02 Seg Neutrophils % 73.0 % (40.0-70.0) H 10/15/16 12:02 Seg Neutrophils # 8.1 K/mm3 (1.8-7.7) H 10/15/16 12:02 PT 13.5 Sec. (12.2-14.9) 10/15/16 12:28 INR 1.04 (0.87-1.13) 10/15/16 12:28 VBG pH 7.324 (7.320-7.420) 10/15/16 12:28 Sodium 138 mmol/L (137-145) 10/15/16 12:16 Potassium 4.3 mmol/L (3.6-5.0) 10/15/16 12:16 Chloride 99.4 mmol/L (98-107) 10/15/16 12:16 Carbon Dioxide 21 mmol/L (22-30) L 10/15/16 12:16 Anion Gap 22 mmol/L 10/15/16 12:16 BUN 12 mg/dL (9-20) 10/15/16 12:16 Creatinine 0.7 mg/dL (0.8-1.5) L 10/15/16 12:16 Estimated GFR > 60 ml/min 10/15/16 12:16 BUN/Creatinine Ratio 17.14 % 10/15/16 12:16 Glucose 148 mg/dL (75-100) H 10/15/16 12:16 Lactic Acid 0.80 mmol/L (0.7-2.0) 10/15/16 20:22 Calcium 8.9 mg/dL (8.4-10.2) 10/15/16 12:16 Total Bilirubin 0.30 mg/dL (0.1-1.2) 10/15/16 12:16 AST 18 units/L (5-40) 10/15/16 12:16 ALT 11 units/L (7-56) 10/15/16 12:16 Alkaline Phosphatase 115 units/L (35-129) 10/15/16 12:16 Troponin T 0.020 ng/mL (0.00-0.029) 10/15/16 12:02 C-Reactive Protein 7.10 mg/dL (0.00-1.30) H 10/17/16 15:00 Total Protein 8.1 g/dL (6.3-8.2) 10/15/16 12:16 Albumin 3.5 g/dL (3.9-5) L 10/15/16 12:16 Albumin/Globulin Ratio 0.8 % 10/15/16 12:16 Urine Color Yellow (Yellow) 10/15/16 16:28 Urine Turbidity Clear (Clear) 10/15/16 16:28 Urine pH 6.0 (5.0-7.0) 10/15/16 16:28 Ur Specific [place] 1.019 (1.003-1.030) 10/15/16 16:28 Urine Protein 100 mg/dl mg/dL (Negative) 10/15/16 16:28 Urine Glucose (UA) Neg mg/dL (Negative) 10/15/16 16:28 Urine Ketones Neg mg/dL (Negative) 10/15/16 16:28 Urine Blood Neg (Negative) 10/15/16 16:28 Urine Nitrite Neg (Negative) 10/15/16 16:28 Urine Bilirubin Neg (Negative) 10/15/16 16:28 Urine Urobilinogen < 2.0 mg/dL (<2.0) 10/15/16 16:28 Ur Leukocyte Esterase Neg (Negative) 10/15/16 16:28 Urine WBC (Auto) 1.0 /HPF (0.0-6.0) 10/15/16 16:28 Urine RBC (Auto) < 1.0 /HPF (0.0-6.0) 10/15/16 16:28 Urine Mucus Few /HPF 10/15/16 16:28 HIV-1 RNA PCR copies/ml 19740 copies/mL (<20) H 10/16/16 15:25 HIV-1 RNA (PCR) log 4.75 Log cps/mL (<1.30) H 10/16/16 15:25 Blood Type O POSITIVE 10/15/16 16:36 Antibody Screen Negative 10/15/16 16:36
[2016-10-19] MEDS: NACL 0.45% 1000 ML 1,000 ML IV SCH (16:59)
[2016-10-19] MEDS: ROCEPHIN/NS 2 GM/100 ML 2 GM/100 ML BAG IV SCH (17:01)
[2016-10-19] MEDS: LOVENOX SUB-Q SCH (21:10)
[2016-10-20] MEDS: BACTRIM IV SCH ×4 (00:40→21:34)
[2016-10-20] MEDS: D5W IV SCH ×4 (00:40→21:34)
[2016-10-20 05:37] LABS: Anion Gap 22 mmol/L; Blood Urea Nitrogen 12 mg/dL (9-20); Calcium 9.4 mg/dL (8.4-10.2); Carbon Dioxide 18 mmol/L (22-30); Chloride 95.7 mmol/L (98-107); Glucose 110 mg/dL (75-100); Hematocrit 31.3 % (35.5-45.6); Hemoglobin 10.8 gm/dl (11.8-15.2); Mean Corpuscular HGB Conc 35 % (32-34); Mean Corpuscular Hemoglobin 30 pg (28-32); Mean Corpuscular Volume 86 fl (84-94); Platelet Count 359 K/mm3 (140-440); Potassium 5.4 mmol/L (3.6-5.0); Red Blood Count 3.64 M/mm3 (3.65-5.03); Red Cell Distribution Width 16.7 % (13.2-15.2); Sodium 130 mmol/L (137-145); White Blood Count 7.2 K/mm3 (4.5-11.0)
[2016-10-20 06:26] LABS: Basophils % (Manual) 0 % (0.0-1.8); Blastocytes % (Manual) 0 %; Diff Status Complete; Eosinophils % (Manual) 0 % (0.0-4.3); Platelet Estimate Consistent w Auto; RBC Morphology Normal
[2016-10-20] MEDS: NACL 0.45% 1000 ML 1,000 ML IV SCH (06:36)
[2016-10-20] MEDS: NYSTATIN PO SCH ×3 (08:58→23:01)
[2016-10-20] MEDS: DELTASONE PO SCH ×2 (08:59→23:00)
[2016-10-20] MEDS: PEPCID PO SCH (08:59)
[2016-10-20] MEDS: ZITHROMAX PO SCH (08:59)
[2016-10-20] MEDS: VIREAD PO SCH (08:59)
[2016-10-20] MEDS: HCTZ PO SCH (08:59)
[2016-10-20] MEDS: BABY ASPIRIN PO SCH (08:59)
[2016-10-20] MEDS: SUSTIVA PO SCH (09:00)
[2016-10-20] MEDS: EMTRIVA PO SCH (09:00)
[2016-10-20] MEDS ORDERED: KIONEX PO ONE (10:08)
--- NOTE | 2016-10-20 11:49 | Progress Note ---
Assessment and Plan Assessment and plan: 56-year-old male with past medical history of HIV /AIDS on retroviral medications and presents with 5 days of cough productive of green sputum fevers and malaise. Sepsis due to PNA likely Pneumocystis PNA continue abx, ID consult appreciated IV bactrim for treatment of PJP -Continue prednisone 40 mg BID for PJP -continue ceftriaxone and azithromycin -airbone iso, check sputum AFB -crypt ag negative -Check Legionella antigen Hyperkalemia Most likely due to IV Bactrim, will give Kayexalate and recheck potassium levels HIV/AIDS continue retrovirals cd4 count is 38 Viral load 55,594 ID consult appreciated Acute hypoxemic respiratory failure improved, continue to wean off oxygen HTN (hypertension) well controlled Lactic acidosis due to sepsis, rx as above dvt ppx lovenox History Interval history: Cough and sputum production has improved Hospitalist Physical - Physical exam Narrative exam: Gen.: non toxic appearance HEENT: Moist mucous membranes, extraocular muscles intact, no lymphadenopathy Neck: supple Cardiac: S1-S2 heard Lungs: Left crackles Abdomen: soft , nontender, nondistended, bowel sounds positive Extremities: no edema clubbing or cyanosis Skin: no rash or lesions Neurologic: no gross focal deficits Psych: appropriate behavior, appropriate mood, corporative, judgment intact - Constitutional Vitals: Temp Pulse Resp BP Pulse Ox 97.5 F L 82 20 120/75 94 10/20/16 09:39 10/20/16 09:39 10/20/16 09:39 10/20/16 09:39 10/20/16 09:39 General appearance: Present: no acute distress Results - Labs CBC & Chem 7: 10/20/16 05:07 10/20/16 05:07 Labs: Laboratory Last Values WBC 7.2 K/mm3 (4.5-11.0) 10/20/16 05:07 RBC 3.64 M/mm3 (3.65-5.03) L 10/20/16 05:07 Hgb 10.8 gm/dl (11.8-15.2) L 10/20/16 05:07 Hct 31.3 % (35.5-45.6) L 10/20/16 05:07 MCV 86 fl (84-94) 10/20/16 05:07 MCH 30 pg (28-32) 10/20/16 05:07 MCHC 35 % (32-34) H 10/20/16 05:07 RDW 16.7 % (13.2-15.2) H 10/20/16 05:07 Plt Count 359 K/mm3 (140-440) 10/20/16 05:07 Lymph % (Auto) 20.3 % (13.4-35.0) 10/15/16 12:02 [place] % (Auto) 5.4 % (0.0-7.3) 10/15/16 12:02 Eos % (Auto) 0.8 % (0.0-4.3) 10/15/16 12:02 Baso % (Auto) 0.5 % (0.0-1.8) 10/15/16 12:02 Lymph # 2.3 K/mm3 (1.2-5.4) 10/15/16 12:02 [place] # 0.6 K/mm3 (0.0-0.8) 10/15/16 12:02 Eos # 0.1 K/mm3 (0.0-0.4) 10/15/16 12:02 Baso # 0.1 K/mm3 (0.0-0.1) 10/15/16 12:02 Add Manual Diff Complete 10/20/16 05:07 Total Counted 100 10/20/16 05:07 Seg Neutrophils % 73.0 % (40.0-70.0) H 10/15/16 12:02 Seg Neuts % (Manual) 69.0 % (40.0-70.0) 10/20/16 05:07 Band Neutrophils % 0 % 10/20/16 05:07 Lymphocytes % (Manual) 27.0 % (13.4-35.0) 10/20/16 05:07 Reactive Lymphs % (Man) 0 % 10/20/16 05:07 Monocytes % (Manual) 4.0 % (0.0-7.3) 10/20/16 05:07 Eosinophils % (Manual) 0 % (0.0-4.3) 10/20/16 05:07 Basophils % (Manual) 0 % (0.0-1.8) 10/20/16 05:07 Metamyelocytes % 0 % 10/20/16 05:07 Myelocytes % 0 % 10/20/16 05:07 Promyelocytes % 0 % 10/20/16 05:07 Blast Cells % 0 % 10/20/16 05:07 Nucleated RBC % Not Reportable 10/20/16 05:07 Seg Neutrophils # 8.1 K/mm3 (1.8-7.7) H 10/15/16 12:02 Seg Neutrophils # Man 5.0 K/mm3 (1.8-7.7) 10/20/16 05:07 Band Neutrophils # 0.0 K/mm3 10/20/16 05:07 Lymphocytes # (Manual) 1.9 K/mm3 (1.2-5.4) 10/20/16 05:07 Abs React Lymphs (Man) 0.0 K/mm3 10/20/16 05:07 Monocytes # (Manual) 0.3 K/mm3 (0.0-0.8) 10/20/16 05:07 Eosinophils # (Manual) 0.0 K/mm3 (0.0-0.4) 10/20/16 05:07 Basophils # (Manual) 0.0 K/mm3 (0.0-0.1) 10/20/16 05:07 Metamyelocytes # 0.0 K/mm3 10/20/16 05:07 Myelocytes # 0.0 K/mm3 10/20/16 05:07 Promyelocytes # 0.0 K/mm3 10/20/16 05:07 Blast Cells # 0.0 K/mm3 10/20/16 05:07 WBC Morphology Not Reportable 10/20/16 05:07 Hypersegmented Neuts Not Reportable 10/20/16 05:07 Hyposegmented Neuts Not Reportable 10/20/16 05:07 Hypogranular Neuts Not Reportable 10/20/16 05:07 Smudge Cells Not Reportable 10/20/16 05:07 Toxic Granulation Not Reportable 10/20/16 05:07 Toxic Vacuolation Not Reportable 10/20/16 05:07 Dohle Bodies Not Reportable 10/20/16 05:07 Pelger-Huet Anomaly Not Reportable 10/20/16 05:07 Awilda Rods Not Reportable 10/20/16 05:07 Platelet Estimate Consistent w auto 10/20/16 05:07 Clumped Platelets Not Reportable 10/20/16 05:07 Plt Clumps, EDTA Not Reportable 10/20/16 05:07 Large Platelets Not Reportable 10/20/16 05:07 Giant Platelets Not Reportable 10/20/16 05:07 Platelet Satelliting Not Reportable 10/20/16 05:07 Plt Morphology Comment Not Reportable 10/20/16 05:07 RBC Morphology Normal 10/20/16 05:07 Dimorphic RBCs Not Reportable 10/20/16 05:07 Polychromasia Not Reportable 10/20/16 05:07 Hypochromasia Not Reportable 10/20/16 05:07 Poikilocytosis Not Reportable 10/20/16 05:07 Anisocytosis Not Reportable 10/20/16 05:07 Microcytosis Not Reportable 10/20/16 05:07 Macrocytosis Not Reportable 10/20/16 05:07 Spherocytes Not Reportable 10/20/16 05:07 Pappenheimer Bodies Not Reportable 10/20/16 05:07 Sickle Cells Not Reportable 10/20/16 05:07 Target Cells Not Reportable 10/20/16 05:07 Tear Drop Cells Not Reportable 10/20/16 05:07 Ovalocytes Not Reportable 10/20/16 05:07 Helmet Cells Not Reportable 10/20/16 05:07 Mckenzie-Keener Bodies Not Reportable 10/20/16 05:07 [place]ldon Rings Not Reportable 10/20/16 05:07 [place] Cells Not Reportable 10/20/16 05:07 Bite Cells Not Reportable 10/20/16 05:07 Crenated Cell Not Reportable 10/20/16 05:07 Elliptocytes Not Reportable 10/20/16 05:07 Acanthocytes (Spur) Not Reportable 10/20/16 05:07 Rouleaux Not Reportable 10/20/16 05:07 Hemoglobin C Crystals Not Reportable 10/20/16 05:07 Schistocytes Not Reportable 10/20/16 05:07 Malaria parasites Not Reportable 10/20/16 05:07 Esdras Bodies Not Reportable 10/20/16 05:07 Hem Pathologist Commnt No 10/20/16 05:07 PT 13.5 Sec. (12.2-14.9) 10/15/16 12:28 INR 1.04 (0.87-1.13) 10/15/16 12:28 VBG pH 7.324 (7.320-7.420) 10/15/16 12:28 Sodium 130 mmol/L (137-145) L D 10/20/16 05:07 Potassium 5.4 mmol/L (3.6-5.0) H D 10/20/16 05:07 Chloride 95.7 mmol/L (98-107) L 10/20/16 05:07 Carbon Dioxide 18 mmol/L (22-30) L 10/20/16 05:07 Anion Gap 22 mmol/L 10/20/16 05:07 BUN 12 mg/dL (9-20) 10/20/16 05:07 Creatinine 0.8 mg/dL (0.8-1.5) 10/20/16 05:07 Estimated GFR > 60 ml/min 10/20/16 05:07 BUN/Creatinine Ratio 15.00 % 10/20/16 05:07 Glucose 110 mg/dL (75-100) H 10/20/16 05:07 Lactic Acid 0.80 mmol/L (0.7-2.0) 10/15/16 20:22 Calcium 9.4 mg/dL (8.4-10.2) 10/20/16 05:07 Total Bilirubin 0.30 mg/dL (0.1-1.2) 10/15/16 12:16 AST 18 units/L (5-40) 10/15/16 12:16 ALT 11 units/L (7-56) 10/15/16 12:16 Alkaline Phosphatase 115 units/L (35-129) 10/15/16 12:16 Troponin T 0.020 ng/mL (0.00-0.029) 10/15/16 12:02 C-Reactive Protein 7.10 mg/dL (0.00-1.30) H 10/17/16 15:00 Total Protein 8.1 g/dL (6.3-8.2) 10/15/16 12:16 Albumin 3.5 g/dL (3.9-5) L 10/15/16 12:16 Albumin/Globulin Ratio 0.8 % 10/15/16 12:16 Urine Color Yellow (Yellow) 10/15/16 16:28 Urine Turbidity Clear (Clear) 10/15/16 16:28 Urine pH 6.0 (5.0-7.0) 10/15/16 16:28 Ur Specific [place] 1.019 (1.003-1.030) 10/15/16 16:28 Urine Protein 100 mg/dl mg/dL (Negative) 10/15/16 16:28 Urine Glucose (UA) Neg mg/dL (Negative) 10/15/16 16:28 Urine Ketones Neg mg/dL (Negative) 10/15/16 16:28 Urine Blood Neg (Negative) 10/15/16 16:28 Urine Nitrite Neg (Negative) 10/15/16 16:28 Urine Bilirubin Neg (Negative) 10/15/16 16:28 Urine Urobilinogen < 2.0 mg/dL (<2.0) 10/15/16 16:28 Ur Leukocyte Esterase Neg (Negative) 10/15/16 16:28 Urine WBC (Auto) 1.0 /HPF (0.0-6.0) 10/15/16 16:28 Urine RBC (Auto) < 1.0 /HPF (0.0-6.0) 10/15/16 16:28 Urine Mucus Few /HPF 10/15/16 16:28 HIV-1 RNA PCR copies/ml 80575 copies/mL (<20) H 10/16/16 15:25 HIV-1 RNA (PCR) log 4.75 Log cps/mL (<1.30) H 10/16/16 15:25 Blood Type O POSITIVE 10/15/16 16:36 Antibody Screen Negative 10/15/16 16:36
--- NOTE | 2016-10-20 13:15 | Progress Note ---
Assessment and Plan Assessment: 1) Sepsis: resolved. Etiology most likely pneumonia 2) LLL pneumonia in a pt with HIV associated with hypoxemia: likely PJP, r/o other opportunistic infections, TB, fungal -crypto serum ag negative 3) HIV-VL 55,594 4) Returning travel from [facility] Plan: -continue IV bactrim for treatment of PJP -contine prednisone 40 mg BID for 5 days then 40 mg QD for 5 days then 20 mg QD cristiano 11 days -continue ceftriaxone -stop azithromycin -f/u procalcitonin, C-reactive protein (CRP) -f/u legionella urine antigen, streptococcus pneumoniae urine antigen, mycoplasma serology, chlamydia pneumophila serology -f/u histoplasma urine antigen -f/u CD4 -respiratory isolation -f/u quantiferon Thank you Dr Manning for your consultation, will follow up with you. Rashmi Pardo MD Infectious Diseases Specialist [facility] M [phone] O [phone] Subjective Date of service: 10/20/16 Interval history: Feels better, denies cough or SOB, no fever. Current Antimicrobials: ceftriaxone 10/15 azitromycin 10/18 bactrim IV 10/17 ART-tenofovir, efavirens, emtricitabine Previous Antimicrobials: Microbiology: Blood cultures: 10/15 ngtd Urine cultures: 10/15 ngtd Respiratory cultures: Wound cultures: Stool cultures: Other: Objective - Exam Narrative Exam: General appearance: Alert in NAD, conversant Eyes: anicteric sclerae, moist conjunctivae; no lid-lag; PERRLA HENT: Atraumatic; oropharynx clear Neck: Trachea midline; supple, no thyromegaly or lymphadenopathy Lungs: deepa rhonchi CV: RRR, no murmurs Abdomen: Soft, non-tender; no masses or hepatosplenomegaly Extremities: No peripheral edema or extremity lymphadenopathy Skin: Normal temperature, turgor and texture; no rash, ulcers or subcutaneous nodules Psych: Appropriate affect, alert and oriented to person, place and time. Neuro: alert and oriented x 3. Moving all extermities - Constitutional Vitals: Vital Signs Temp Pulse Resp BP Pulse Ox 97.5 F L 82 20 120/75 94 10/20/16 09:39 10/20/16 09:39 10/20/16 09:39 10/20/16 09:39 10/20/16 09:39 Temperature -Last 24 Hours Temperature 97.5 F Temperature 98.4 F Temperature 99.3 F - Labs CBC & Chem 7: 10/20/16 05:07 10/20/16 05:07 Labs: Abnormal lab results 10/20/16 10/20/16 Range/Units 05:07 05:07 RBC 3.64 L (3.65-5.03) M/mm3 Hgb 10.8 L (11.8-15.2) gm/dl Hct 31.3 L (35.5-45.6) % MCHC 35 H (32-34) % RDW 16.7 H (13.2-15.2) % Sodium 130 L D (137-145) mmol/L Potassium 5.4 H D (3.6-5.0) mmol/L Chloride 95.7 L (98-107) mmol/L Carbon Dioxide 18 L (22-30) mmol/L Glucose 110 H (75-100) mg/dL
[2016-10-20] MEDS: ROCEPHIN/NS 2 GM/100 ML 2 GM/100 ML BAG IV SCH (21:35)
[2016-10-20] MEDS: LOVENOX SUB-Q SCH (23:00)
[2016-10-21] MEDS: BACTRIM IV SCH ×2 (01:13→06:26)
[2016-10-21] MEDS: D5W IV SCH ×2 (01:13→06:26)
[2016-10-21 09:37] LABS: Anion Gap 18 mmol/L; BUN/Creatinine Ratio 17.77; Blood Urea Nitrogen 16 mg/dL (9-20); Calcium 9.6 mg/dL (8.4-10.2); Carbon Dioxide 21 mmol/L (22-30); Chloride 95.1 mmol/L (98-107); Glucose 129 mg/dL (75-100); Potassium 5.1 mmol/L (3.6-5.0); Sodium 129 mmol/L (137-145)
[2016-10-21] MEDS: NYSTATIN PO SCH (09:44)
[2016-10-21] MEDS: HCTZ PO SCH (09:45)
[2016-10-21] MEDS: VIREAD PO SCH (09:45)
[2016-10-21] MEDS: DELTASONE PO SCH (09:45)
[2016-10-21] MEDS: BABY ASPIRIN PO SCH (09:46)
[2016-10-21] MEDS: EMTRIVA PO SCH (09:46)
[2016-10-21] MEDS: SUSTIVA PO SCH (09:46)
[2016-10-21] MEDS: PEPCID PO SCH (09:46)
--- NOTE | 2016-10-21 10:11 | Progress Note ---
Assessment and Plan Assessment and plan: 56-year-old male with past medical history of HIV /AIDS on retroviral medications and presents with 5 days of cough productive of green sputum fevers and malaise. 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 Hospitalist Physical - Physical exam Narrative exam: General.: Appears well, no distress, nontoxic HEENT: Moist mucous membranes, extraocular muscles intact, no lymphadenopathy Neck: supple Cardiac: S1-S2 heard Lungs: clear to auscultation bilaterally Abdomen: soft , nontender, nondistended, bowel sounds positive Extremities: no edema clubbing or cyanosis Skin: no rash or lesions Neurologic: no gross focal deficits Psych: appropriate behavior, appropriate mood, corporative, judgment intact - Constitutional Vitals: Temp Pulse Resp BP Pulse Ox 97.8 F 69 16 124/84 96 10/21/16 07:42 10/21/16 07:42 10/21/16 07:42 10/21/16 07:42 10/21/16 07:42 General appearance: Present: no acute distress Results - Labs CBC & Chem 7: 10/20/16 05:07 10/21/16 08:08 Labs: Laboratory Last Values WBC 7.2 K/mm3 (4.5-11.0) 10/20/16 05:07 RBC 3.64 M/mm3 (3.65-5.03) L 10/20/16 05:07 Hgb 10.8 gm/dl (11.8-15.2) L 10/20/16 05:07 Hct 31.3 % (35.5-45.6) L 10/20/16 05:07 MCV 86 fl (84-94) 10/20/16 05:07 MCH 30 pg (28-32) 10/20/16 05:07 MCHC 35 % (32-34) H 10/20/16 05:07 RDW 16.7 % (13.2-15.2) H 10/20/16 05:07 Plt Count 359 K/mm3 (140-440) 10/20/16 05:07 Lymph % (Auto) 20.3 % (13.4-35.0) 10/15/16 12:02 [place] % (Auto) 5.4 % (0.0-7.3) 10/15/16 12:02 Eos % (Auto) 0.8 % (0.0-4.3) 10/15/16 12:02 Baso % (Auto) 0.5 % (0.0-1.8) 10/15/16 12:02 Lymph # 2.3 K/mm3 (1.2-5.4) 10/15/16 12:02 [place] # 0.6 K/mm3 (0.0-0.8) 10/15/16 12:02 Eos # 0.1 K/mm3 (0.0-0.4) 10/15/16 12:02 Baso # 0.1 K/mm3 (0.0-0.1) 10/15/16 12:02 Add Manual Diff Complete 10/20/16 05:07 Total Counted 100 10/20/16 05:07 Seg Neutrophils % 73.0 % (40.0-70.0) H 10/15/16 12:02 Seg Neuts % (Manual) 69.0 % (40.0-70.0) 10/20/16 05:07 Band Neutrophils % 0 % 10/20/16 05:07 Lymphocytes % (Manual) 27.0 % (13.4-35.0) 10/20/16 05:07 Reactive Lymphs % (Man) 0 % 10/20/16 05:07 Monocytes % (Manual) 4.0 % (0.0-7.3) 10/20/16 05:07 Eosinophils % (Manual) 0 % (0.0-4.3) 10/20/16 05:07 Basophils % (Manual) 0 % (0.0-1.8) 10/20/16 05:07 Metamyelocytes % 0 % 10/20/16 05:07 Myelocytes % 0 % 10/20/16 05:07 Promyelocytes % 0 % 10/20/16 05:07 Blast Cells % 0 % 10/20/16 05:07 Nucleated RBC % Not Reportable 10/20/16 05:07 Seg Neutrophils # 8.1 K/mm3 (1.8-7.7) H 10/15/16 12:02 Seg Neutrophils # Man 5.0 K/mm3 (1.8-7.7) 10/20/16 05:07 Band Neutrophils # 0.0 K/mm3 10/20/16 05:07 Abs Lymphs (Manual) 856 cells/uL (850-3900) 10/16/16 15:25 Lymphocytes # (Manual) 1.9 K/mm3 (1.2-5.4) 10/20/16 05:07 Abs React Lymphs (Man) 0.0 K/mm3 10/20/16 05:07 Monocytes # (Manual) 0.3 K/mm3 (0.0-0.8) 10/20/16 05:07 Eosinophils # (Manual) 0.0 K/mm3 (0.0-0.4) 10/20/16 05:07 Basophils # (Manual) 0.0 K/mm3 (0.0-0.1) 10/20/16 05:07 Metamyelocytes # 0.0 K/mm3 10/20/16 05:07 Myelocytes # 0.0 K/mm3 10/20/16 05:07 Promyelocytes # 0.0 K/mm3 10/20/16 05:07 Blast Cells # 0.0 K/mm3 10/20/16 05:07 WBC Morphology Not Reportable 10/20/16 05:07 Hypersegmented Neuts Not Reportable 10/20/16 05:07 Hyposegmented Neuts Not Reportable 10/20/16 05:07 Hypogranular Neuts Not Reportable 10/20/16 05:07 Smudge Cells Not Reportable 10/20/16 05:07 Toxic Granulation Not Reportable 10/20/16 05:07 Toxic Vacuolation Not Reportable 10/20/16 05:07 Dohle Bodies Not Reportable 10/20/16 05:07 Pelger-Huet Anomaly Not Reportable 10/20/16 05:07 Awilda Rods Not Reportable 10/20/16 05:07 Platelet Estimate Consistent w auto 10/20/16 05:07 Clumped Platelets Not Reportable 10/20/16 05:07 Plt Clumps, EDTA Not Reportable 10/20/16 05:07 Large Platelets Not Reportable 10/20/16 05:07 Giant Platelets Not Reportable 10/20/16 05:07 Platelet Satelliting Not Reportable 10/20/16 05:07 Plt Morphology Comment Not Reportable 10/20/16 05:07 RBC Morphology Normal 10/20/16 05:07 Dimorphic RBCs Not Reportable 10/20/16 05:07 Polychromasia Not Reportable 10/20/16 05:07 Hypochromasia Not Reportable 10/20/16 05:07 Poikilocytosis Not Reportable 10/20/16 05:07 Anisocytosis Not Reportable 10/20/16 05:07 Microcytosis Not Reportable 10/20/16 05:07 Macrocytosis Not Reportable 10/20/16 05:07 Spherocytes Not Reportable 10/20/16 05:07 Pappenheimer Bodies Not Reportable 10/20/16 05:07 Sickle Cells Not Reportable 10/20/16 05:07 Target Cells Not Reportable 10/20/16 05:07 Tear Drop Cells Not Reportable 10/20/16 05:07 Ovalocytes Not Reportable 10/20/16 05:07 Helmet Cells Not Reportable 10/20/16 05:07 [place] Bodies Not Reportable 10/20/16 05:07 [place] Rings Not Reportable 10/20/16 05:07 [place] Cells Not Reportable 10/20/16 05:07 Bite Cells Not Reportable 10/20/16 05:07 Crenated Cell Not Reportable 10/20/16 05:07 Elliptocytes Not Reportable 10/20/16 05:07 Acanthocytes (Spur) Not Reportable 10/20/16 05:07 Rouleaux Not Reportable 10/20/16 05:07 Hemoglobin C Crystals Not Reportable 10/20/16 05:07 Schistocytes Not Reportable 10/20/16 05:07 Malaria parasites Not Reportable 10/20/16 05:07 Esdras Bodies Not Reportable 10/20/16 05:07 Hem Pathologist Commnt No 10/20/16 05:07 PT 13.5 Sec. (12.2-14.9) 10/15/16 12:28 INR 1.04 (0.87-1.13) 10/15/16 12:28 VBG pH 7.324 (7.320-7.420) 10/15/16 12:28 Sodium 129 mmol/L (137-145) L 10/21/16 08:08 Potassium 5.1 mmol/L (3.6-5.0) H 10/21/16 08:08 Chloride 95.1 mmol/L (98-107) L 10/21/16 08:08 Carbon Dioxide 21 mmol/L (22-30) L 10/21/16 08:08 Anion Gap 18 mmol/L 10/21/16 08:08 BUN 16 mg/dL (9-20) 10/21/16 08:08 Creatinine 0.9 mg/dL (0.8-1.5) 10/21/16 08:08 Estimated GFR > 60 ml/min 10/21/16 08:08 BUN/Creatinine Ratio 17.77 % 10/21/16 08:08 Glucose 129 mg/dL (75-100) H 10/21/16 08:08 Lactic Acid 0.80 mmol/L (0.7-2.0) 10/15/16 20:22 Calcium 9.6 mg/dL (8.4-10.2) 10/21/16 08:08 Total Bilirubin 0.30 mg/dL (0.1-1.2) 10/15/16 12:16 AST 18 units/L (5-40) 10/15/16 12:16 ALT 11 units/L (7-56) 10/15/16 12:16 Alkaline Phosphatase 115 units/L (35-129) 10/15/16 12:16 Troponin T 0.020 ng/mL (0.00-0.029) 10/15/16 12:02 C-Reactive Protein 7.10 mg/dL (0.00-1.30) H 10/17/16 15:00 Total Protein 8.1 g/dL (6.3-8.2) 10/15/16 12:16 Albumin 3.5 g/dL (3.9-5) L 10/15/16 12:16 Albumin/Globulin Ratio 0.8 % 10/15/16 12:16 Urine Color Yellow (Yellow) 10/15/16 16:28 Urine Turbidity Clear (Clear) 10/15/16 16:28 Urine pH 6.0 (5.0-7.0) 10/15/16 16:28 Ur Specific [place] 1.019 (1.003-1.030) 10/15/16 16:28 Urine Protein 100 mg/dl mg/dL (Negative) 10/15/16 16:28 Urine Glucose (UA) Neg mg/dL (Negative) 10/15/16 16:28 Urine Ketones Neg mg/dL (Negative) 10/15/16 16:28 Urine Blood Neg (Negative) 10/15/16 16:28 Urine Nitrite Neg (Negative) 10/15/16 16:28 Urine Bilirubin Neg (Negative) 10/15/16 16:28 Urine Urobilinogen < 2.0 mg/dL (<2.0) 10/15/16 16:28 Ur Leukocyte Esterase Neg (Negative) 10/15/16 16:28 Urine WBC (Auto) 1.0 /HPF (0.0-6.0) 10/15/16 16:28 Urine RBC (Auto) < 1.0 /HPF (0.0-6.0) 10/15/16 16:28 Urine Mucus Few /HPF 10/15/16 16:28 Lymph Enumerat CD4/CD8 0.06 (0.86-5.00) L 10/16/16 15:25 % CD3 Cells 87 % (57-85) H 10/16/16 15:25 Absolute CD3 Count 748 cells/uL (840-3060) L 10/16/16 15:25 % CD4 Cells 5 % (30-61) L 10/16/16 15:25 Absolute CD4 Count 38 cells/uL (490-1740) L 10/16/16 15:25 % CD8 Cells 82 % (12-42) H 10/16/16 15:25 Absolute CD8 Count 683 cells/uL (180-1170) 10/16/16 15:25 % CD19 Cells 8 % (6-29) 10/16/16 15:25 Absolute CD19 Count 66 cells/uL (110-660) L 10/16/16 15:25 HIV-1 RNA PCR copies/ml 82856 copies/mL (<20) H 10/16/16 15:25 HIV-1 RNA (PCR) log 4.75 Log cps/mL (<1.30) H 10/16/16 15:25 TB (QFT) Gold In Tube Negative (Negative) 10/17/16 Unknown TB Test (QFT) Nil 0.12 IU/mL 10/17/16 Unknown TB Test Mitogen - Nil 9.34 IU/mL 10/17/16 Unknown TB Test Antigen - Nil <0.00 IU/mL 10/17/16 Unknown Miscellaneous Test Flexitest 1 H 10/18/16 17:00 Blood Type O POSITIVE 10/15/16 16:36 Antibody Screen Negative 10/15/16 16:36
--- NOTE | 2016-10-21 10:56 | Progress Note ---
Assessment and Plan Assessment: 1) Sepsis: resolved. Etiology most likely pneumonia 2) LLL pneumonia in a pt with HIV associated with hypoxemia: likely Strep pneumoniae pneumonia -crypto serum ag negative -Strep pneumoniae urine antigen positive -Quantiferon negative -AFB in sputum x 1 negative 3) HIV-VL 55,594, CD4=38 4) Returning travel from [facility] Plan: -stop IV bactrim for treatment of PJP -stop prednisone -start levaquin 750 mg po qday for total 7 days -continue ceftriaxone -stop azithromycin -f/u legionella urine antigen -f/u histoplasma urine antigen -respiratory isolation -upon discharge will need levaquin 750 mg po qday for total 10 days, bactrim DS 1 tab q day for PJP prophylaxis, azithromycin 1600 mg PO q week for MAC prophylaxis. -ID clinic f/u in 1-2 weeks -re-start his ART -pneumovax I am signing off Thank you Dr Manning for your consultation, will follow up with you. Rashmi Pardo MD Infectious Diseases Specialist [facility] M [phone] O [phone] Subjective Date of service: 10/21/16 Principal diagnosis: pneumonia Interval history: Feels better, denies cough or SOB, no fever. Current Antimicrobials: ceftriaxone 10/15 azitromycin 10/18 bactrim IV 10/17 ART-tenofovir, efavirens, emtricitabine Previous Antimicrobials: Microbiology: Blood cultures: 10/15 ngtd Urine cultures: 10/15 ngtd Respiratory cultures: 10/17 AFB negative x 1 Wound cultures: Stool cultures: Other: Objective - Exam Narrative Exam: General appearance: Alert in NAD, conversant Eyes: anicteric sclerae, moist conjunctivae; no lid-lag; PERRLA HENT: Atraumatic; oropharynx clear Neck: Trachea midline; supple, no thyromegaly or lymphadenopathy Lungs: deepa rhonchi CV: RRR, no murmurs Abdomen: Soft, non-tender; no masses or hepatosplenomegaly Extremities: No peripheral edema or extremity lymphadenopathy Skin: Normal temperature, turgor and texture; no rash, ulcers or subcutaneous nodules Psych: Appropriate affect, alert and oriented to person, place and time. Neuro: alert and oriented x 3. Moving all extermities - Constitutional Vitals: Vital Signs Temp Pulse Resp BP Pulse Ox 97.8 F 69 16 124/84 96 10/21/16 07:42 10/21/16 07:42 10/21/16 07:42 10/21/16 07:42 10/21/16 07:42 Temperature -Last 24 Hours Temperature 97.8 F Temperature 97.5 F Temperature 97.8 F - Labs CBC & Chem 7: 10/20/16 05:07 10/21/16 08:08 Labs: Abnormal lab results 10/16/16 10/18/16 10/21/16 Range/Units 15:25 17:00 08:08 Sodium 129 L (137-145) mmol/L Potassium 5.1 H (3.6-5.0) mmol/L Chloride 95.1 L (98-107) mmol/L Carbon Dioxide 21 L (22-30) mmol/L Glucose 129 H (75-100) mg/dL Lymph Enumerat CD4/CD8 0.06 L (0.86-5.00) % CD3 Cells 87 H (57-85) % Absolute CD3 Count 748 L (840-3060) cells/uL % CD4 Cells 5 L (30-61) % Absolute CD4 Count 38 L (490-1740) cells/uL % CD8 Cells 82 H (12-42) % Absolute CD19 Count 66 L (110-660) cells/uL Miscellaneous Test Flexitest 1 H
[2016-10-21] MEDS ORDERED: NACL 0.9% 1000 ML 1,000 ML IV SCH (11:00)
[2016-10-21] MEDS ORDERED: PNEUMOVAX 23 IM ONE (12:30)
[2016-10-21] MEDS: ZITHROMAX PO SCH (14:16)
--- NOTE | 2016-10-21 15:07 | Discharge Summary ---
Providers - Providers Date of Admission: 10/15/16 15:51 Attending physician: MARIANA HAZEL MD 10/16/16 15:09 Consult to Physician [CONS] Routine Consulting Provider: MANUEL BONILLA Reason For Exam: PNA in HIV patient Place consult to:: DR. MOREL Notified:: DR. MOREL Phone number called:: [phone] Was contact made?: Yes If yes, spoke with:: DR. MOREL Time called:: 16:09 Primary care physician: MEDICINE ASSISTANT Hospitalization Condition: Stable Hospital course: 56-year-old male with past medical history of HIV /AIDS on retroviral medications and presents with 5 days of cough productive of green sputum fevers and malaise. He had an extensive workup done for pneumonia, and his urine was positive for strep pneumonia antigen. He was initially on airborne isolation, however interferon was negative, as well as crypt antigen and Legionella antigen. He was seen in conjunction with infectious disease. He receives a course of IV antibiotics and is being transitioned to an oral course which she will complete upon discharge. He was also found to have HIV with low CD4 count of 38 and viral load of 55,000, he was started on PCP and Mac prophylaxis. The patient follows up in [facility] for his retroviral medications, he was advised to follow up with them. He was hypoxic upon admission, but he was treated he was weaned off oxygen and was doing well on room air. His electrolytes are replete that he received IV fluids, he was discharged home in improved condition Discharge diagnosis Gram-positive sepsis Streptococcus pneumonia Hyperkalemia Hyponatremia HIV/AIDS Acute hypoxic versus refilling Hypertension Disposition: DC-01 TO HOME OR SELFCARE Time spent for discharge: 35 minutes Core Measure Documentation - Palliative Care Palliative Care/ Comfort Measures: Not Applicable - Core Measures Any of the following diagnoses?: none Exam - Constitutional Vitals: Temp Pulse Resp BP Pulse Ox 97.8 F 69 16 124/84 99 10/21/16 07:42 10/21/16 07:42 10/21/16 07:42 10/21/16 07:42 10/21/16 10:00 General appearance: Present: no acute distress, well-nourished - EENT Eyes: Present: PERRL ENT: hearing intact, clear oral mucosa - Neck Neck: Present: supple, normal ROM - Respiratory Respiratory effort: normal Respiratory: bilateral: CTA - Cardiovascular Heart Sounds: Present: S1 & S2. Absent: rub, click - Extremities Extremities: pulses symmetrical, No edema Peripheral Pulses: within normal limits - Abdominal General gastrointestinal: Present: soft, non-tender, non-distended, normal bowel sounds Male genitourinary: Present: normal - Integumentary Integumentary: Present: clear, warm, dry - Musculoskeletal Musculoskeletal: gait normal, strength equal bilaterally - Psychiatric Psychiatric: appropriate mood/affect, intact judgment & insight - Neurologic Neurologic: CNII-XII intact, moves all extremities Plan Follow up with: PRIMARY CARE, [Primary Care Provider] - 3-5 Days Prescriptions: Azithromycin [Zithromax TAB] 1,600 mg PO QWEEK #4 dose Hydrochlorothiazide [HCTZ] 12.5 mg PO QDAY #30 capsule Levofloxacin [Levaquin] 750 mg PO QDAY #7 tablet Sulfamethoxazole/Trimethoprim [Bactrim DS TAB] 1 each PO DAILY #30 tablet
[2016-10-21 16:19] VITALS: BP 123/88
== END 2016-10-21 17:30 | disposition home or self-care (01) | DRG 974 ==
LOC: ED 11:38 → 3A 15:51
PROVIDERS: ADMIT Internal Medicine; ATTEND Internal Medicine
PROC: 3E0234Z Introduction of Serum, Toxoid and Vaccine into Muscle, Percutaneous Approach (ICD-10-PCS; principal; 2016-10-16)
DX: A41.9 Sepsis, unspecified organism (principal); B20 Human immunodeficiency virus [HIV] disease; J96.01 Acute respiratory failure with hypoxia; J18.1 Lobar pneumonia, unspecified organism; E87.2 Acidosis; E87.1 Hypo-osmolality and hyponatremia; I10 Essential (primary) hypertension; E05.90 Thyrotoxicosis, unspecified without thyrotoxic crisis or storm; E87.5 Hyperkalemia; Z82.49 Family history of ischemic heart disease and other diseases of the circulatory system; Z23 Encounter for immunization
CPT/HCPCS: 36415; 71020; 80048; 80053; 81001; 82024; 82140; 82164; 82805; 84484; 85007; 85025; 85610; 86140; 86403; 86850; 86900; 86901; 87040; 87086; 87449; 87536; 90686; 90732; 93005; 93010; 94760; 96365; 96368; J0456; J0696; J1650; J1956; J7030; J7050; J7060; J7512